=== PATIENT | male | born 1965 | race Caucasian/White ===

== ENCOUNTER 2024-10-19 14:12 | Emergency (ER) | payer SELFPAY ==
[~2024-10-19] VITALS: Ht 177.8 cm; Wt 108.0 kg
[2024-10-19 14:18] VITALS: O2SAT 100
[2024-10-19] MEDS ORDERED: HYDR-4001 MT (16:14)
[2024-10-19 16:29] VITALS: BP 128/68; PULSE 99; RESP 18; TEMP 37.11408; O2SAT 100
== END 2024-10-19 16:37 | disposition home or self-care (01) ==
LOC: EDBD 15:25 → ER 15:25
DX: S02.2XXA Fracture of nasal bones, initial encounter for closed fracture (principal); R51.9 Headache, unspecified; X58.XXXA Exposure to other specified factors, initial encounter; Y93.89 Activity, other specified; Y92.89 Other specified places as the place of occurrence of the external cause; Y99.8 Other external cause status
CPT/HCPCS: 12013; 70486; 99284